=== PATIENT | male | born 1935 | race Caucasian/White ===

== ENCOUNTER 2019-05-19 09:07 | Inpatient (IN) ==
[2019-05-19] MEDS ORDERED: Naloxone 0.4 MG/ML INJ IVP PRN (12:35)
[2019-05-19] MEDS ORDERED: Dextrose Gel 15 GM/37.5 ML TUBE PO PRN ×2 (12:37)
[2019-05-19] MEDS ORDERED: *HR* Dextrose 50 % in Water (Syg) 50 ML SYRINGE IVP PRN (12:37)
[2019-05-19] MEDS ORDERED: D5% in Water 1,000 ML IVC PRN (12:37)
[2019-05-19] MEDS ORDERED: *HR* Heparin 5,000 UNIT/ML VIAL IVP PRN ×2 (13:40)
[2019-05-19] MEDS ORDERED: *HR* Heparin 5,000 UNIT/ML VIAL IVP ONE (13:40)
[2019-05-19 13:42] LABS: Basophils % 0.4 %; Eosinophils # 0.2 K/mcL (0.0-0.6); Eosinophils % 2.8 %; Hematocrit 39.9 % (37.5-50.1); Hemoglobin 13.1 g/dL (12.9-16.9); Immature Granulocytes % 0.4 % (0-4); Lymphocytes # 1.7 K/mcL (0.6-4.6); Lymphocytes % 32.5 %; Mean Corpuscular HGB Conc 32.8 g/dL (31.6-35.5); Mean Corpuscular Hemoglobin 32.5 pg (28.0-33.3); Mean Platelet Volume 10.1 fL (9.4-12.4); Monocytes # 0.5 K/mcL (0.0-1.3); Neutrophils # 2.9 K/mcL (1.6-8.9); Platelet Count 160 K/mcL (140-400); Red Blood Count 4.03 M/mcL (4.19-5.50); Red Cell Distribution Width 12.6 % (11.5-14.5); Segmented Neutrophils % 54.9 %; White Blood Count 5.3 K/mcL (4.3-11.1)
[2019-05-19] MEDS ORDERED: Heparin 25,000 UNIT/250 ML D5W 25,000 UNIT/250 ML IV.SOLN IVC SCH ×2 (13:45→21:30)
[2019-05-19] MEDS: 0.9 % Sodium Chloride 1,000 ML IVC SCH (13:48)
[2019-05-19] MEDS: Insulin LISPRO 300 UNITS/3 ML VIAL SQ SCH ×2 (13:49→17:30)
[2019-05-19 13:58] LABS: Albumin 3.4 g/dL (3.5-5.7); Albumin/Globulin Ratio 1.3 (1.1-2.2); Bilirubin,Total 0.8 mg/dL (0.3-1.0); Calcium 8.2 mg/dL (8.6-10.3); Globulin 2.6 g/dL (2.4-3.5); Phosphorous 3.6 mg/dL (2.7-4.5); Potassium 4.2 mEq/L (3.5-5.1)
[2019-05-19 14:00] LABS: Chol/HDL Ratio 2.7 (0-4.9)
[2019-05-19 14:03] LABS: Troponin I 0.06 ng/mL (< 0.04)
[2019-05-19 14:38] LABS: Heparin anti-factor XA UFH 0.09 IU/mL (0.30-0.70)
[2019-05-19 14:39] LABS: INR 1.2; Prothrombin Time 13.3 Seconds (9.4-12.1)
[2019-05-19] MEDS ORDERED: Perflutren Lipid Microsphere 1.3 ML in 0.9 % Sodium Chloride 8.7 ML IVP ONE (15:34)
[2019-05-19] MEDS ORDERED: Apixaban 5 MG TABLET PO SCH (21:00)
[2019-05-19] MEDS ORDERED: Insulin LISPRO 300 UNITS/3 ML VIAL SQ SCH (21:00)
[2019-05-19] MEDS ORDERED: traZODone 50 MG TABLET PO PRN (23:37)
[2019-05-20] MEDS: Sennosides/Docusate Sodium TABLET PO PRN ×2 (00:16→08:33)
[2019-05-20] MEDS: *HR* OxyCODONE/APAP 10/325 TABLET PO PRN ×2 (01:29→13:42)
[2019-05-20] MEDS: Fluticasone Propionate Nasal 50 MCG/SPRAY BOTTLE NS SCH ×2 (01:30→08:26)
[2019-05-20 04:13] LABS: White Blood Count 4.9 K/mcL (4.3-11.1)
[2019-05-20 04:14] LABS: Basophils % 0.4 %; Eosinophils # 0.1 K/mcL (0.0-0.6); Hematocrit 36.4 % (37.5-50.1); Hemoglobin 12.1 g/dL (12.9-16.9); Immature Granulocytes % 0.4 % (0-4); Lymphocytes # 1.5 K/mcL (0.6-4.6); Lymphocytes % 31.5 %; Mean Corpuscular HGB Conc 33.2 g/dL (31.6-35.5); Mean Corpuscular Hemoglobin 33.2 pg (28.0-33.3); Mean Corpuscular Volume 99.7 fL (83.0-100.0); Mean Platelet Volume 10.2 fL (9.4-12.4); Monocytes # 0.5 K/mcL (0.0-1.3); Monocytes % 10.8 %; Neutrophils # 2.7 K/mcL (1.6-8.9); Platelet Count 130 K/mcL (140-400); Red Blood Count 3.65 M/mcL (4.19-5.50); Red Cell Distribution Width 12.5 % (11.5-14.5); Segmented Neutrophils % 54.9 %
[2019-05-20 04:19] LABS: Calcium 8.2 mg/dL (8.6-10.3); Magnesium 1.9 mg/dL (1.6-2.6); Phosphorous 3.8 mg/dL (2.7-4.5)
[2019-05-20] MEDS: Insulin LISPRO 300 UNITS/3 ML VIAL SQ SCH ×2 (07:44→11:30)
[2019-05-20] MEDS: 0.9 % Sodium Chloride 1,000 ML IVC SCH (08:27)
[2019-05-20] MEDS ORDERED: Aspirin 81 MG TAB.CHEW PO SCH (09:00)
[2019-05-20] MEDS ORDERED: Regadenoson 0.4 MG/5 ML SYRINGE IVP ONE (10:25)
[2019-05-20 13:19] VITALS: BP 163/83
== END 2019-05-20 16:23 | disposition home or self-care (01) | DRG 309 ==
LOC: 2ANU 11:50 → SUATTDRO 12:35
PROVIDERS: ADMIT Family Medicine; ATTEND Internal Medicine